=== PATIENT | male | born 1975 | race Caucasian/White ===

== ENCOUNTER 2018-06-23 12:58 | Emergency (ER) | payer MEDICAID ==
[~2018-06-23] VITALS: Ht 185.4 cm; Wt 112.6 kg
[~2018-06-23 12:58] MED LIST: AZIT250T PO; BENZ-6 PO; PROM6.2515 PO
[2018-06-23 13:01] VITALS: BP 124/80; PULSE 125; RESP 20; Ht 185.4 cm; Wt 112.6 kg
[2018-06-23] MEDS ORDERED: PROMETHAZINE/CODEINE 5ML CUP PO ONE (17:30)
--- NOTE | 2018-06-23 17:48 | ERD ---
ER Documentation Chief Complaint Chief Complaint Complains of a cough colds and flu symptoms x 3 days HPI 42-year-old male presents with complaint of cough, fevers, sore throat for the past 3 days. However he states that the cough has been lasting for the last 2 months. In addition he states that he has been having intermittent bloody noses which self resolved. He states that he was here 2 months ago they gave him antibiotics and cough medicine but it did not resolve the cough. Denies any current treatments. Denies any nausea vomiting diarrhea. Deniers night sweats, weight loss, fatigue, hemoptysis, wheezing, dyspnea, pleuritic chest pain, or orthopnea. Denies past medical history. Denies allergies. Denies medications. Denies surgeries. Denies alcohol, tobacco, or drug use. ROS All systems reviewed and are negative except as per history of present illness. Medications Home Meds Active Scripts Ibuprofen* (Motrin*) 400 Mg Tab, 400 MG PO Q6H PRN for PAIN AND OR ELEVATED TEMP, #30 TAB Prov:ELÍAS PATEL 06/23/18 Promethazine HCl/Codeine (Prometh-Codein 6.25-10 mg/5 ml) 5 Ml Syrup, 5 ML PO Q4, #4 OZ Prov:ELÍAS PATEL 06/23/18 Benzonatate* (Tessalon Perle*) 100 Mg Capsule, 100 MG PO Q8H PRN for COUGH, #30 CAP Prov:BILLY JEAN-BAPTISTE PA-C 05/29/18 Promethazine Hcl* (Promethazine Hcl* Syrup) 6.25 Mg/5 Ml Syrup, 6.25 MG PO Q6H PRN for COUGH, #100 ML Prov:BILLY JEAN-BAPTISTE PA-C 05/29/18 Azithromycin* (Zithromax*) 250 Mg Tablet, 250 MG PO .ZPACK DIRECTED, #6 TAB TAKE 500 MG (2 TABS) THE FIRST DAY THEN 250 MG (1 TAB) DAYS 2-5 Prov:BILLY JEAN-BAPTISTE PA-C 05/29/18 Allergies Allergies: Coded Allergies: No Known Allergy (Unverified , 05/29/18) PMhx/Soc Medical and Surgical Hx: pt denies Medical Hx, pt denies Surgical Hx Hx Alcohol Use: No Hx Substance Use: No Hx Tobacco Use: No FmHx Family History: No diabetes, No coronary disease, No other Physical Exam Vitals Vital Signs Date Temp Pulse Resp B/P (MAP) Pulse Ox O2 O2 Flow FiO2 Time Delivery Rate 06/23/18 100.3 125 20 124/80 98 13:01 (95) Physical Exam Const: No acute distress Head: Atraumatic Eyes: Normal Conjunctiva ENT: Normal External Ears, Nose and Mouth. Neck: Full range of motion. No meningismus. Resp: Clear to auscultation bilaterally Cardio: Regular rate and rhythm, no murmurs Abd: Soft, non tender, non distended. Normal bowel sounds Skin: No petechiae or rashes Back: No midline or flank tenderness Ext: No cyanosis, or edema Neur: Awake and alert Psych: Normal Mood and Affect Results 24 hrs Current Medications Medications Dose Sig/Alexey Start Time Status Last (Trade) Ordered Route PRN Stop Time Admin Dose Reason Admin Promethazine 10 ml ONCE ONCE 06/23/18 DC 06/23/18 HCl/ PO 17:30 06/23/18 18:02 Codeine 17:31 (Phenergan/ Codeine) Procedures/MDM Due to the 2-month like the cough there was concern for DIAGNOSTIC IMAGING REPORT Patient: CASSANDRA VARGAS : 1975 Age: 42 Sex: M MR #: [id number] DOS: 06/23/18 1728 Ordering MD: ELÍAS PATEL Location: [facility] Room/Bed: PROCEDURE: CHEST X-RAY CLINICAL INDICATION: Cough for 2-month TECHNIQUE: One-view COMPARISON: None FINDINGS: Heart size and pulmonary vascularity appears unremarkable. No acute infiltrates, edema, pneumothorax noted. This is a poor inspiratory chest with elevated right hemidiaphragm seen. IMPRESSION: No acute process noted radiographically RPTAT: AAOO Physician Yazmin Date Time Electronically viewed and signed by Physician Yazmin on 06/23/2018 18:05 MB/ CC: ELÍAS PATEL [id number] 35-year-old male presents with history of lower back pain rating down his right leg for the past 3 weeks. States that it started after he was playing basketball and he jumped up and landed upon which he felt a sharp pain in his lower back. States that the pain has been getting worse over the last 5 days. He was referred here by his primary care provider who requested a CT done. He has been taking ibuprofen but has not taken any today. Patient is ambulatory. Denies saddle numbness, incontinence, pain worse at night or when supine, weight loss, night sweats, fatigue, focal neurological defecits, recent bacterial infection, IV drug use, or immunosuppression. Denies past medical history. Denies allergies. Denies surgeries. Denies ETOH, drug, or tobacco use. Due to the 2-month length of cough there was concern for possible pneumonia or other pathology. Chest x-ray was ordered and was within normal limits. I have low suspicion for tubercolosis, pneumonia, pleural effusion, acute heart failure, foreign body aspiration, pulmonary embolism, pneumothorax, or other emergent etiology. Patients O2 sat is normal and is not having difficulty breathing, the refore patient is fit for discharge. Patient discharged with rx for promethazine and advised to follow up with PMD. Patient discharged with strict ER precautions. All questions answered at discharge. Departure Diagnosis: Primary Impression: Upper respiratory infection URI type: unspecified viral URI Qualified Codes: J06.9 - Acute upper respiratory infection, unspecified Condition: Stable ELÍAS PATEL Jun 23, 2018 17:48
[2018-06-23] MEDS ORDERED: IBUP-1561 PO (18:38)
[2018-06-23] MEDS ORDERED: PROM5SYR2 PO (18:38)
== END 2018-06-23 18:52 | disposition home or self-care (01) ==
LOC: FTE 12:58
DX: J06.9 Acute upper respiratory infection, unspecified (principal)
CPT/HCPCS: 71045; Z7610